=== PATIENT | female | born 1935 | race Caucasian/White ===

== ENCOUNTER → 2016-06-16 | Day surgery (SDC) | payer MEDICARE, OTHER ==
[~2016-06-16] MED LIST: BISOPROLOL-HCTZ1 TA6; CRESTOR5 MG; DICYCLOMINE HCL10 MG PO; GABAPENTIN300 MG PO; KEFLEX500 MG PO; LEVOTHYROXINE50 MC1 PO; MAGNESIUM250 M1 PO; MOBIC15 MG PO; NEXIUM PO; POTASSIUM99 M1 PO; POTASSIUM99 M2 PO; PRESERVISION1 EA PO; ROSUVASTATIN CAL5 MG; TOPROL XL50 MG PO; TRAMADOL HCL50 M1 PO; VIT E PO; VITAMIN D1000 UNI1; VITAMIN D2000 UNIT PO
--- NOTE | ~2016-06-16 | OR ---
Unit #: [id number] #: [id number] Patient: JOSE DAVID WOOD [id number] [address] [place], [place] [address] [id number] O MR#: [id number] NAME: JOSE DAVID WOOD ROOM: Date of Procedure: 06/16/2016 Admission Date: 06/16/2016 Surgeon: Alex Hairston M.D. : 1935 Attending Physician: Alex Hairston M.D. Primary Care Physician: Kaia Liz M.D. [facility]ENTER OPERATIVE NOTE PROCEDURE PERFORMED Lumbar epidural steroid injection under x-ray guided needle placement. PREOPERATIVE DIAGNOSES 1. Acute lumbar radiculitis. 2. Spinal stenosis, lumbosacral spine, multiple levels. 3. Degenerative joint disease, lumbosacral spine. 4. Degenerative disk disease, lumbosacral spine. INDICATIONS FOR PROCEDURE The patient presents today with longstanding history of chronic lumbar radicular pain secondary to her underlying degenerative processes. She is generally fairly well managed with ongoing continuous conservative measures; however, she does occasionally experience exacerbations, which to date have only responded to epidural steroid injections. Her usual amount of relief is 60% to 80% for 8 to 10 weeks. She presents today with 1-month history of crescendo pattern advancement of her painful symptoms which has failed to respond to her usual ongoing and continuous conservative measures. She in the interim between today and her last visit has been evaluated for DXP for lumbar facet joint injections and radiofrequency ablation, which she states gave her no improvement in her pain control. After discussing risks and benefits of proceeding today with a lumbar approach epidural steroid injection utilizing dual needle technique, the patient agreed this would be the appropriate course of action. She is also given a return visit for 10/06/2016. DESCRIPTION OF PROCEDURE Following these discussions, the patient was taken to the operating room, where she was prepped and draped in a sterile manner. Standard monitors were applied. She refused all forms of sedation and lumbar epidural space was accessed at the L5-S1 and L3-L4 levels using loss of resistance technique and x-ray guidance. Needle placement at each level was confirmed with injection of 2 mL of Omnipaque at the L5-S1 level, approximately all of the dye remained in the L5-S1 level with some advancement out into the nerve root. At the L3-L4 level, it was approximately 80% superior and 20% inferior. Following successful needle placement confirmation which required an x-ray time of 13 seconds, the patient received an injectate containing 4 mL normal saline and 40 mg of methylprednisolone at each level for a total injectate volume of 8 mL normal saline and 80 mg of methylprednisolone. She tolerated this procedure well. She was discharged home with followup instructions, which include return dates as described above. She was instructed if she was Unit #: [id number] #: [id number] Patient: JOSE DAVID WOOD asymptomatic at the time of being scheduled appointment to simply not keep that appointment and to follow up with us and/or her referring provider as she should have further need of their services. Dictated by... Nikolai Liang/griselda TD: 06/17/2016 03:30 JOB #: [id number] [facility] OPERATIVE NOTE Page 1 of 1 X Robert Hairston MD X PROCEDURE OPERATIVE NOTE
== END | disposition home or self-care (01) ==
LOC: CCSC 09:01
DX: G89.29 Other chronic pain (principal); M51.17 Intervertebral disc disorders with radiculopathy, lumbosacral region; M48.07 Spinal stenosis, lumbosacral region; K21.9 Gastro-esophageal reflux disease without esophagitis; Z88.2 Allergy status to sulfonamides; Z90.49 Acquired absence of other specified parts of digestive tract; Z90.710 Acquired absence of both cervix and uterus; Z98.890 Other specified postprocedural states
CPT/HCPCS: J1040; J2250

== ENCOUNTER → 2016-10-06 | Day surgery (SDC) | payer MEDICARE, OTHER ==
--- NOTE | ~2016-10-06 | OR ---
Unit #: [id number] #: [id number] Patient: JOSE DAVID WOOD [id number] [address] [place], [place] [address] [id number] O MR#: [id number] NAME: JOSE DAVID WOOD. ROOM: Date of Procedure: 10/06/2016 Admission Date: 10/06/2016 Surgeon: Alex Hairston M.D. : 1935 Attending Physician: Alex Hairston M.D. Referring Physician: Alex Hairston M.D. Primary Care Physician: Kaia Liz M.D. SUR[facility] CENTER OPERATIVE NOTE PROCEDURE PERFORMED Lumbar epidural steroid injection under x-ray guided needle placement. PREOPERATIVE DIAGNOSIS 1. Acute lumbar radiculitis. 2. Spinal stenosis, lumbosacral spine. 3. Degenerative joint disease, lumbosacral spine. 4. Degenerative disk disease, lumbosacral spine. INDICATIONS FOR PROCEDURE The patient presents today with longstanding history of chronic lumbar radicular pain secondary to her underlying degenerative processes. She is generally fairly well managed medically with ongoing medical treatment and self-directed physical activity. She is generally does very well, but on occasion, does have exacerbations, which to date have only responded to interventional pain management procedures. Her usual amount relief with an epidural steroid injection is 80% for 8 to 10 weeks. She presents today experiencing just such an exacerbation which is similar to past and consistent with her x-ray findings. After discussing risks and benefits of proceeding today with a lumbar epidural steroid injection utilize a dual needle access technique, the patient agreed this would be the appropriate course of action. DESCRIPTION OF PROCEDURE She was then taken to the operating room, where she was prepped and draped in sterile manner. Standard monitors were applied. She refused all forms of sedation and lumbar epidural space accessed at the L2-L3 level with ease and with a little bit more difficulty at L5-S1. Total x-ray time for this dual needle placement was 15 seconds. Needle placement was confirmed at each level with the injection of 2 mL of Omnipaque at the L2-L3 level approximately 80% flows in the cephalad direction. At the L5-S1 level approximately 80% flow was in the caudad direction. Therefore, the next visit will most likely do an L3-L4 single injection. Following successful needle placement and confirmation, the patient received an injectate containing 4 mL of normal saline, 40 mg of methylprednisolone. She tolerated this procedure well for a total injectate volume of 8 mL of normal saline, 80 mg of methylprednisolone. She tolerated this procedure well and was discharged to home with followup instructions, which include an offer to return to this clinic services on January 12 so we could be of further service. She was instructed if she was asymptomatic at that time to simply not keep that appointment and to follow up with us or her Unit #: [id number] #: [id number] Patient: JOSE DAVID WOOD referring provider when we could be of further service. Dictated by... Nikolai Liang/griselda TD: 10/07/2016 07:49 JOB #: [id number] [facility] OPERATIVE NOTE Page 1 of 1 X Robert Hairston MD X PROCEDURE OPERATIVE NOTE
== END | disposition home or self-care (01) ==
LOC: CCSC 08:15
DX: M47.27 Other spondylosis with radiculopathy, lumbosacral region (principal); M51.17 Intervertebral disc disorders with radiculopathy, lumbosacral region; M48.07 Spinal stenosis, lumbosacral region; K21.9 Gastro-esophageal reflux disease without esophagitis
CPT/HCPCS: J1040; J2250